=== PATIENT | female | born 1950 | race Caucasian/White ===

== ENCOUNTER → 2018-06-06 10:58 | Outpatient (REF) | payer MEDICARE, BC, SELFPAY | LOC: LBN 10:58 | PROVIDERS: PCP Family Medicine; Visit Provider Family Medicine | DX: N89.8 Other specified noninflammatory disorders of vagina (principal); N95.2 Postmenopausal atrophic vaginitis | CPT/HCPCS: 87480; 87510; 87660 ==

== ENCOUNTER → 2018-06-26 14:53 | Outpatient (REF) | payer MEDICARE, BC, SELFPAY | LOC: LBN 14:53 | PROVIDERS: PCP Family Medicine; Visit Provider Nurse Practitioner Women's Health | DX: R30.0 Dysuria (principal) | CPT/HCPCS: 87077; 87086 ==

== ENCOUNTER → 2018-07-04 15:07 | Outpatient (REF) | payer MEDICARE, BC, SELFPAY ==
--- NOTE | 2018-07-04 13:15 | ENDOMET_PTH ---
PATIENT: WANDA HUERTA LOC: [facility] U#:[id number] AGE/SX: 75/F ROOM: RE07/04/[address]: Mackenzie Marc NP : 1950 BED: DIS: SPEC #: [id number] RECD: 07/04/18 17:41 STATUS: ISHAN REEliana #: [id number] ÁNGEL: 07/04/18 13:[address]: Mackenzie Marc NP DEPT: Surgical Specimen RECD BY: Marjorie Palma ENTERED: 07/04/18 17:43 SP TYPE: Endomet OTHR DR: Jessi Rodriguez MD Tissues: 1 - ENDOMETRIUM BX/AMELIAETTE Procedures: GROSS AND MICRO LEVEL 4 Comments: [id number]
== END ==
LOC: LBN 15:07
PROVIDERS: PCP Family Medicine; Visit Provider Nurse Practitioner Women's Health
DX: N85.00 Endometrial hyperplasia, unspecified (principal); N85.8 Other specified noninflammatory disorders of uterus; N83.8 Other noninflammatory disorders of ovary, fallopian tube and broad ligament; N95.0 Postmenopausal bleeding; Z79.810 Long term (current) use of selective estrogen receptor modulators (SERMs)
CPT/HCPCS: 88305

== ENCOUNTER 2018-07-24 01:06 | Outpatient (CLI) | payer MEDICARE, BC, SELFPAY ==
--- NOTE | 2018-07-24 13:50 | DI.US_ITS ---
SYMPTOMS/DIAGNOSIS: POSTMENOPAUSAL BLEEDING PELVIC ULTRASOUND: Pelvic ultrasound was performed transabdominally and transvaginally. Please see the accompanying data sheet for measurements of the pelvic structures. The uterus has a heterogeneous myometrial appearance. No focal mass identified. The endometrial stripe is about 3 mm in diameter and appears homogeneous. No free fluid identified in the cul-de-sac. There are a few small Nabothian cysts noted. The ovaries are nonvisualized transabdominally or transvaginally. Limited scanning of the kidneys is unremarkable. CONCLUSION: Heterogeneous appearance of the myometrium may represent diffuse uterine fibroid. The ovaries not visualized on this examination.
== END 2018-07-24 01:26 ==
PROVIDERS: PCP Family Medicine; Visit Provider Nurse Practitioner Women's Health
DX: N95.0 Postmenopausal bleeding (principal); N85.8 Other specified noninflammatory disorders of uterus
CPT/HCPCS: 76830; 76856

== ENCOUNTER 2018-08-27 00:46 | Outpatient (CLI) | payer MEDICARE, BC, SELFPAY ==
--- NOTE | 2018-08-27 15:00 | DI.RAD_ITS ---
SYMPTOMS/DIAGNOSIS: Z78.0 SCREENING FOR OSTEOPOROSIS IN A POSTMENOPAUSAL WOMAN , N60.99 ATYPICAL DUCTAL HYPERPLASIA OF BREAST DEXA SCAN WITH CHASE: Comparison is made with chest x-ray dated April,. The CHASE image shows mild anterior wedging of the mid thoracic vertebral bodies, stable when compared with the previous chest x-ray. The bone mineral density measurements of the lumbar spine correspond to a total T score of 0.1, in the normal range. The bone mineral density measurements of the left hip correspond to a total T score of -0.6 and a femoral neck T score of -0.8, also within the normal range. The bone mineral density measurements of the left forearm correspond to a T score of the distal third of -1.0; this is at the borderline of normal and osteopenia. The total T score is -1.2, consistent with mild osteopenia. IMPRESSION: Normal bone mineral density of the lumbar spine and left hip. Borderline osteopenia of the left forearm.
== END 2018-08-27 01:06 ==
PROVIDERS: PCP Family Medicine; Visit Provider Nurse Practitioner Family
DX: M85.88 Other specified disorders of bone density and structure, other site (principal); N60.99 Unspecified benign mammary dysplasia of unspecified breast; Z78.0 Asymptomatic menopausal state
CPT/HCPCS: 77080

== ENCOUNTER 2019-03-24 10:45 | Outpatient (CLI) | payer MEDICARE, BC, SELFPAY ==
[2019-03-24 12:35] LABS: HCT 36.6 % (36.0-46.0); HGB 12.3 g/dL (12.0-15.5); Mean Corp. HGB Concentration 33.6 g/dL (32.0-36.0); Mean Corpuscular Hemoglobin 32.1 pg (27.0-33.0); Mean Corpuscular Volume 95.6 fL (80-95); Mean Platelet Volume 9.9 fL (8.0-11.0); Platelet Count 158 x1000/uL (130-400); RBC 3.83 m/cumm (4.00-5.20); RBC Distribution Width 12.1 % (11.7-14.6); White Blood Cell Count 4.63 k/cumm (4.4-10.8)
[2019-03-24 13:26] LABS: ALT 20 U/L (12-78); AST 21 U/L (15-37); Albumin 3.5 g/dL (3.4-5.0); Alkaline Phosphatase 50 U/L (46-116); Anion Gap 12.5 mmol/L (3-11); BUN 27 mg/dL (7-18); Bilirubin, Total 0.3 mg/dL (0.2-1.0); CO2 24.5 mmol/L (21.0-32.0); CREATININE 0.93 mg/dL (0.55-1.02); Calcium 8.4 mg/dL (8.5-10.1); Chloride 101 mmol/L (98-107); Glucose 95 mg/dL (70-100); Sodium 138 mmol/L (136-145)
[2019-03-24 14:27] LABS: TSH 1.19 uIU/mL (0.358-3.74)
== END 2019-03-24 11:05 ==
PROVIDERS: PCP Family Medicine; Visit Provider Family Medicine
DX: C50.919 Malignant neoplasm of unspecified site of unspecified female breast (principal); E03.9 Hypothyroidism, unspecified
CPT/HCPCS: 36415; 80053; 85027; 84443

== ENCOUNTER 2019-07-03 00:41 | Outpatient (CLI) | payer MEDICARE, BC, SELFPAY ==
--- NOTE | 2019-07-03 09:34 | DI.MAMMO_ITS ---
SYMPTOM/DIAGNOSIS: ATYPICAL DUCTAL HYPERPLASIA OF RIGHT BREAST N60.91 MAMMOGRAMS: Mammograms were interpreted according to the usual protocol including computer analysis with CAD system, tomosynthesis and C view imaging. Comparison with prior examinations. Breast density category A, no suspicious masses or microcalcifications are seen. Clips are again seen in the right breast. Skin and axilla are unremarkable. IMPRESSION: No evidence for malignancy. Category 1. Yearly mammography is recommended. Breast density category A. The findings were discussed with the patient on the date of the examination. [facility] ASSESSMENT OF FINDINGS: Negative. Category 1. Patient will receive a letter notifying them of these results. BI-RAD category A. The breasts are almost entirely fatty.
== END 2019-07-03 01:01 ==
PROVIDERS: PCP Family Medicine; Visit Provider Internal Medicine Hematology & Oncology
DX: N60.91 Unspecified benign mammary dysplasia of right breast (principal)
CPT/HCPCS: 77063; 77067

== ENCOUNTER → 2019-08-11 12:57 | Outpatient (BNVA) | payer MEDICARE, BC, SELFPAY | PROVIDERS: PCP Family Medicine; Referring Provider Family Medicine; Visit Provider Student in an Organized Health Care Education/Training Program | DX: M65.331 Trigger finger, right middle finger (principal); M65.341 Trigger finger, right ring finger | CPT/HCPCS: 99203; 99214 ==

== ENCOUNTER 2019-08-26 06:15 | Day surgery (SDC) | payer MEDICARE, BC, SELFPAY ==
[2019-08-26 06:30] VITALS: BP 104/73; PULSE 70; RESP 16; TEMP 36.5; O2SAT 95
--- NOTE | 2019-08-26 07:45 | PDOC.DSDIS_ITS ---
Discharge Plan Disposition Patient Disposition: HOME Condition: Good Discharge Details Reason For Visit: RMF RRF Trigger Fingers Attending Provider: Seth Nelson Primary Care Provider: Jessi Rodriguez Home Meds and New Rx's Prescriptions: New acetaminophen 500 mg tablet 1,000 mg PO Q8H PRN (Reason: pain) Qty: 30 RF: 3 ibuprofen 600 mg tablet 600 mg PO TID PRN (Reason: pain) Qty: 30 RF: 3 Continued epinephrine [EpiPen 2-Gino] 0.3 mg/0.3 mL auto-injector 0.3 mg IM PRN PRN (Reason: Anaphylaxis) Qty: 1 RF: 3 levothyroxine 75 mcg tablet 75 mcg PO DAILY Qty: 90 RF: 4 Restasis 1 EACH dropperette 1 drp Ophthalmic BID RF: 0 ascorbic acid (vitamin C) 1,000 MG tablet 1 tab PO DAILY RF: 0 calcium carbonate-vitamin D3 [Caltrate with Vitamin D3] 1 EACH tablet 2 tab PO DAILY RF: 0 BERRYTASTIC 1 cap PO DAILY RF: 0 magnesium oxide 250 MG tablet 250 mg PO BID RF: 0 albuterol sulfate [ProAir HFA] 8.5 GM HFA aerosol inhaler 1 - 2 puff Inhalation QID PRNQty: 1 RF: 3 (DME) Aerochamber Plus Flow-Vu 1 EACH spacer 1 ea Miscellaneous QID Qty: 1 RF: 0 latanoprost 2.5 ML drops 1 drp OU HS RF: 0 anastrozole [Arimidex] 1 mg tablet 1 mg PO DAILY Qty: 90 RF: 0 mometasone [Nasonex] 50 mcg/actuation spray,non-aerosol 1 spray NS BID PRNQty: 1 RF: 4 sertraline [Zoloft] 50 mg tablet 50 mg PO DAILY Qty: 90 RF: 3 Discharge Instructions Stand Alone Forms: Omar Odell Finger Release Referrals: Seth Nelson MD [ [facility] STAFF PHYSICIAN] - Activity:: Elevate Remove Dressings/Wound Care:: 48 hours Shower/Bathe:: 48 hours Diet:: As Tolerated Discharge Orders Discharge Orders: Discharge Order (Routine); Ordered 08/26/19 Ordered By: Seth Nelson DS: Diagnosis Discharge Diagnosis (1) Trigger finger, right ring finger: Status: Acute (2) Trigger finger, right middle finger: Status: Acute
[2019-08-26] MEDS: Sodium Bicarbonate 50 MEQ/50 ML VIAL (08:12)
--- NOTE | 2019-08-26 12:08 | W.PM.OP ---
Date of service: 08/26/19 Time of Service: 08:29 Operative Note Operative Note DATE OF PROCEDURE: 08/26/19 PRE-OP DIAGNOSIS: Right Middle and Ring Finger Trigger Finger POST-OP DIAGNOSIS: same PROCEDURE: Trigger Finger Release - Right Middle and Ring Fingers SURGEON: Seth Nelson ANESTHESIA: local ESTIMATED BLOOD LOSS: 5 PATHOLOGY: none sent TOURNIQUET TIME: 0 COMPLICATIONS: None Patient was transported to: same day Patient's condition: stable Indications: I have seen Keesha in clinic for symptoms of a trigger finger of the right middle and ring fingers. The catching, clicking, locking, and pain limited function. The diagnosis of trigger finger was evident. The symptoms had not responded to conservative measures. I discussed trigger finger release with the patient. I reviewed the risks of the procedure to include, but not limited to, bleeding, infection, pain, stiffness, incomplete release, damage to nerves or vessels, continued catching, recurrence. Despite these risks, the patient elected to proceed. Findings: There was a tightened A1 radha which was released. The flexor tendons were inspected and the patient was able to move the finger without any catching, clicking, or locking. Procedure Description: Keesha was greeted in the preoperative holding area where the correct side was identified and marked. The consent was reviewed with the patient and signed. All questions were answered. Keesha was taken back to the operating room. The patient was placed into the supine position on the operating room table with the right arm on an arm board. All bony prominences were well padded. No prophylactic antibiotics were administered since this was a clean, elective hand surgical case. The right arm was then prepped with Chloraprep and draped in a standard fashion with stockinette and extremity drape. A timeout to confirm correct identity, side and site, procedure, allergies, anesthesia, and medical concerns was performed. The surgical site was marked as a longitudinal incision directly over the A1 radha of the right middle and ring fingers. This was confirmed with palpation during finger flexion. This area, overlying the metacarpal head, was then anesthetized with 1% Lidocaine with Epinephrine for both digits. The patient tolerated this well and once the anesthetic had setup, the procedure began. A longitudinal incision was made through skin only, approximately 1cm, starting with the middle finger. The deep tissues were dissected bluntly. Once the A1 radha and flexor tendons were identified the soft tissue including neurovascular structures were retracted medially and laterally. There were no crossing structures over the A1 radha. The proximal edge of the radha was identified and the radha was incised with tenotomy scissors. There was a release of the tendons once this was fully released. The tendons were then removed from the wound and inspected. The tendons were then returned and the patient was asked to move the finger into deep flexion and back to extension. There was no recreation of the pre-operative symptoms. The hand was then once more inspected for any A0 radha or area of possible constriction. The wound was then irrigated and the skin was closed with a 4-0 Nylon. A longitudinal incision was then made through skin only, approximately 1cm, with the ring finger. The deep tissues were dissected bluntly. Once the A1 radha and flexor tendons were identified the soft tissues including neurovascular structures were retracted medially and laterally. There were no crossing structures over the A1 radha. The proximal edge of the radha was identified and the radha was incised with tenotomy scissors. There was a release of the tendons once this was fully released. The tendons were then removed from the wound and inspected. The tendons were then returned and the patient was asked to move the finger into deep flexion and back to extension. There was no recreation of the pre-operative symptoms. The hand was then once more inspected for any A0 radha or area of possible constriction. The wound was then irrigated and the skin was closed with a 4-0 Nylon. This was dressed with gauze and a Conform dressing. The patient tolerated the procedure well and was returned to the Same Day Surgery area in a stable condition suffering no known complication.
== END 2019-08-26 09:30 | disposition home or self-care (01) ==
PROVIDERS: PCP Family Medicine; Visit Provider Student in an Organized Health Care Education/Training Program
PROC: (CPT 26055; principal; 2019-08-26 07:30)
DX: M65.331 Trigger finger, right middle finger (principal); M65.341 Trigger finger, right ring finger
CPT/HCPCS: 26055

== ENCOUNTER 2019-09-04 11:30 | Outpatient (CLI) | payer MEDICARE, BC, SELFPAY | END 2019-09-04 11:50 | PROVIDERS: PCP Family Medicine | DX: M65.341 Trigger finger, right ring finger (principal); M65.331 Trigger finger, right middle finger; Z47.89 Encounter for other orthopedic aftercare ==

== ENCOUNTER 2020-04-08 02:47 | Outpatient (CLI) | payer MEDICARE, BC, SELFPAY ==
--- NOTE | 2020-04-08 09:45 | DI.RAD_ITS ---
EXAM: XR CHEST 2V PA LATERAL CLINICAL HISTORY: exertional dyspnea/wheezing/persistent post tx, R06.00 TECHNIQUE: 2D digital imaging was performed. COMPARISON: CR CHEST 2 VIEWS PA,LAT from 04/27/2017 FINDINGS: The heart is not enlarged. The lungs are clear and well expanded. No pleural effusion seen. Mediastin al contours appear intact. IMPRESSION: Normal chest
== END 2020-04-08 03:07 ==
PROVIDERS: PCP Family Medicine; Visit Provider Family Medicine
DX: R06.09 Other forms of dyspnea (principal); R05 Cough; R06.2 Wheezing
CPT/HCPCS: 71046

== ENCOUNTER 2020-05-28 02:14 | Outpatient (CLI) | payer MEDICARE, BC, SELFPAY ==
[2020-05-28 14:49] LABS: ALT 19 U/L (14-59); AST 20 U/L (15-37); Albumin 3.5 g/dL (3.4-5.0); Alkaline Phosphatase 63 U/L (46-116); Anion Gap 9.4 mmol/L (3-11); BUN 25 mg/dL (7-18); Bilirubin, Total 0.4 mg/dL (0.2-1.0); CO2 26.6 mmol/L (21.0-32.0); CREATININE 0.99 mg/dL (0.55-1.02); Calcium 8.5 mg/dL (8.5-10.1); Chloride 102 mmol/L (98-107); Estimated GFR 55.78 (mL/min/1.73m2); Glucose 92 mg/dL (74-106); Potassium 3.7 mmol/L (3.5-5.1); Sodium 138 mmol/L (136-145); TSH 1.64 uIU/mL (0.36-3.74); Total Protein 7.2 g/dL (6.4-8.2)
[2020-05-28 15:01] LABS: Uric Acid 5.1 mg/dL (2.6-6.0)
== END 2020-05-28 02:34 ==
PROVIDERS: PCP Family Medicine; Visit Provider Family Medicine
DX: M25.50 Pain in unspecified joint (principal); E03.9 Hypothyroidism, unspecified; E78.5 Hyperlipidemia, unspecified
CPT/HCPCS: 36415; 80053; 84443; 84550

== ENCOUNTER 2020-08-06 04:46 | Outpatient (CLI) | payer MEDICARE, BC, SELFPAY ==
--- NOTE | 2020-08-06 07:15 | DI.MAMMO_ITS ---
EXAM: MG MAMMO SCREENING 60 MIN DUR CLINICAL HISTORY: breast cancer screening,personal h/o breast ca TECHNIQUE: Mammograms were interpreted according to the usual protocol including computer analysis w [employer] CAD system, tomosynthesis and C-view imaging. COMPARISON: 2010 through 2018 FINDINGS: The breasts are composed of mainly fatty density , Breast Density category A. No suspicious masses or suspicious microcalcifications are seen. Two biopsy marker clips are again n oted in the posterolateral right breast. No skin thickening or abnormal axillary lymph nodes are seen. There has been no significant change from prior exams. IMPRESSION: BI-RADS Category 2 - Benign Findings Yearly screening mammography is recommended. Breast Density - Category A, fatty density. A negative radiographic report should not delay biopsy if a dominant or clinically suspicious mass is present. Up to ten percent of cancers are not identified on mammography. A negative report may reinforce clinical impression. Adenosis and dense breasts may obscure an underlying neoplasm. False positive reports average 6 to 10%. Patient will receive a letter notifying them of these results.
== END 2020-08-06 05:06 ==
PROVIDERS: PCP Family Medicine; Visit Provider Family Medicine
DX: Z12.31 Encounter for screening mammogram for malignant neoplasm of breast (principal); Z85.3 Personal history of malignant neoplasm of breast
CPT/HCPCS: 77063; 77067

== ENCOUNTER 2020-08-20 04:14 | Outpatient (CLI) | payer MEDICARE, BC, SELFPAY ==
[2020-08-23 12:56] LABS: Hepatitis A Antibody IgM Negative (Negative); Hepatitis B Core Antibody Negative (Negative); Hepatitis B surface Ag Positive (Negative); Hepatitis C Ab w Rflx HCV PCR Negative (Negative)
== END 2020-08-20 04:34 ==
PROVIDERS: PCP Family Medicine; Visit Provider Family Medicine
DX: Z20.5 Contact with and (suspected) exposure to viral hepatitis (principal)
CPT/HCPCS: 36415; 86704; 86709; 86803; 87340